=== PATIENT | female | born 2000 ===

== ENCOUNTER → 2022-09-23 | Outpatient (CLI) | payer BC ==
[2022-09-23 14:24] LABS: Candida species (DNA Probe) Negative (NEGATIVE); G. vaginalis (DNA Probe) Negative (NEGATIVE); T. vaginalis (DNA Probe) Negative (NEGATIVE)
== END | disposition home or self-care (01) ==
LOC: LAB 09:24 → LAB SHORT 09:24
PROVIDERS: Advanced Practice Midwife
DX: N76.0 Acute vaginitis (principal)
CPT/HCPCS: 87480; 87510; 87660

== ENCOUNTER → 2023-04-14 | Outpatient (CLI) | payer OTHER ==
[2023-04-15 10:56] LABS: Candida species (DNA Probe) Negative (NEGATIVE); G. vaginalis (DNA Probe) Negative (NEGATIVE); T. vaginalis (DNA Probe) Negative (NEGATIVE)
== END ==
LOC: LAB 13:45 → LAB SHORT 13:45
PROVIDERS: Advanced Practice Midwife
DX: N76.0 Acute vaginitis (principal)
CPT/HCPCS: 87480; 87510; 87660

== ENCOUNTER → 2024-07-27 | Outpatient (CLI) | payer OTHER ==
[2024-07-27 14:05] LABS: Bacterial Vaginosis PCR Negative (NEGATIVE); Candida Group, PCR NOT DETECTED (NOT DETECT); Candida glabrata-krusei, PCR NOT DETECTED (NOT DETECT)
== END ==
LOC: LAB SHORT 10:56 → LAB 10:56
PROVIDERS: Advanced Practice Midwife
DX: N76.0 Acute vaginitis (principal)
CPT/HCPCS: 87481; 87661; 87801